=== PATIENT | male | born 1940 | race Caucasian/White ===

== ENCOUNTER → 2017-09-08 10:13 | Outpatient (CLI) | payer MEDICARE, SELFPAY ==
--- NOTE | 2017-09-08 10:19 | MR_ITS ---
MR cervical spine wo/w con, MR 3-d myelogram/MRCP HISTORY: Prior Neck Surgery 2015. Pain since neck surgery. ITS.REASON: CERVICAL DISC DISEASE ORDERING PHYSICIAN: Ellis Dickinson MD PATIENT AGE: 77 years Comparison: CT 01-01-15, MRI 12-17-13 TECHNIQUE: Standard multiplanar multiecho sequences are performed without contrast. 3-D MIP and myelographic images are also rendered and reviewed FINDINGS: There has been extensive cervical spine surgery. Interpedicular screws with posterior stabilizing rods are present C2-T4. This causes extensive artifact. Axial images are noncontributory due to this artifact. Hypertrophic changes are present at the atlantoaxial joint. There is mild anterolisthesis of C3 on C4 4 mm. There is intense increase T2 signal involving the disc at C3-C4 not readily apparent on the previous exam. The disc space however is well preserved. Minimal bulging disc noted at that level. There is fusion of C4 C5 C6 and C7 with no disc space evident at these areas. There is mild posterior ridging at C6-C7 with narrowing of the canal but no obvious cord impingement. There is mild bowing of the posterior aspect of the T2 vertebral body inferiorly and T3-T4 area. IMPRESSION: 1. Extensive postsurgical changes with interpedicular screws and stabilizing rods from C2 to T4 causing extensive artifact. The axial images are nondiagnostic. Please see above for detailed description of the postsurgical changes. 2. Increased T2 signal involves the C3-C4 disc not readily apparent on the previous study. The disc spaces well preserved. Clinical significance of this is uncertain. There is almost 4 mm anterolisthesis of C3. 3. Canal narrowing at C6-C7 with posterior ridging at C6-C7. There is also narrowing the canal at T2 and T3. Consider CT for further evaluation due to the extensive artifact
== END ==
PROVIDERS: Family Provider Internal Medicine Adolescent Medicine; PCP Internal Medicine Adolescent Medicine; Visit Provider Internal Medicine Adolescent Medicine
DX: M50.00 Cervical disc disorder with myelopathy, unspecified cervical region (principal)
CPT/HCPCS: 72156; 76376; A9576

== ENCOUNTER → 2018-05-12 15:18 | Outpatient (CLI) | payer MEDICARE, SELFPAY ==
--- NOTE | 2018-05-12 15:25 | XR_ITS ---
XR shoulder LT min 2V HISTORY: ITS.REASON: ACUTE LT SHOULDER PAIN ORDERING PHYSICIAN: Steven Banks MD PATIENT AGE: 77 years Comparison: 11/21/2009 FINDINGS: There are mild osteoarthritic changes of the left AC joint and glenohumeral joint. No fracture location is evident. Subacromial stenosis noted on the external rotation view. No lytic or blastic change. IMPRESSION: Mild osteoarthritis with subacromial stenosis. No significant change from 11/21/2009
== END ==
PROVIDERS: PCP Internal Medicine Adolescent Medicine; Visit Provider Internal Medicine Adolescent Medicine
DX: M25.512 Pain in left shoulder (principal)
CPT/HCPCS: 73030

== ENCOUNTER → 2021-02-27 12:52 | Outpatient (CLI) | payer MEDICARE, SELFPAY ==
[2021-02-27 13:12] LABS: Basophils # 0.1 K/mm3 (0-0.2); Basophils % 1.1 % (0.1-2.0); Eosinophils # 0.6 K/mm3 (0.0-0.4); Eosinophils % 5.8 % (0.1-12.0); Hematocrit 40.1 % (42.0-52.0); Hemoglobin 13.4 g/dL (14.1-18.0); Lymphocytes # 3.2 K/mm3 (0.7-4.5); Lymphocytes % 33.5 % (10-50); Mean Corpuscular HGB Conc 33.5 g/dL (31.8-35.4); Mean Corpuscular Hemoglobin 35.2 pg (27.0-31.2); Mean Corpuscular Volume 105.1 fl (80-94); Monocytes # 0.6 K/mm3 (0.1-1.0); Monocytes % 6.1 % (1.7-9.3); Neutrophils # 5.2 K/mm3 (1.8-7.8); Neutrophils % 53.4 % (37.0-80.0); Platelet Count 313 K/mm3 (142-424); Red Blood Count 3.82 M/mm3 (4.60-6.20); Red Cell Distribution Width 13.9 % (11.5-17.5); White Blood Count 9.7 K/mm3 (4.8-10.8)
[2021-02-27 13:21] LABS: Hemoglobin A1C 6.6 % (4.0-6.0)
[2021-02-27 14:10] LABS: Alanine Aminotransferase 13 U/L (12-78); Albumin/Globulin Ratio 1.5 (1.1-1.8); Alkaline Phosphatase 50 U/L (38-126); Anion Gap 10.4 mEq/L (5-15); Aspartate Amino Transferase 20 U/L (17-59); Blood Urea Nitrogen 18 mg/dl (9-20); Calcium 9.5 mg/dl (8.4-10.2); Carbon Dioxide 33 mmol/L (22.0-30.0); Chloride 101 mmol/L (98-107); Chol/HDL Ratio 4.3 (1-3.5); Cholesterol 168 mg/dl (140-200); Estimated Glomerular Filt Rate 72 ml/min (>60); GFR (African American) 87 ML/MIN (>60); Globulin 2.6 g/dL (1.3-3.2); Glucose 160 mg/dl (74-100); HDL Cholesterol 39 mg/dl (40-60); Potassium 4.4 mmoL/L (3.5-5.1); Sodium 140 mmol/L (136-145); Total Protein,Serum 6.6 g/dl (6.3-8.2); Triglycerides 340 mg/dl (30-150); VLDL Cholesterol 68 mg/dL (0-40)
[2021-02-27 14:21] LABS: Direct LDL Cholesterol 91.14 mg/dL (100-129)
== END ==
PROVIDERS: Visit Provider Internal Medicine Adolescent Medicine
DX: E11.69 Type 2 diabetes mellitus with other specified complication (principal); I10 Essential (primary) hypertension; Z79.84 Long term (current) use of oral hypoglycemic drugs
CPT/HCPCS: 36415; 80053; 80061; 83036; 85025

== ENCOUNTER → 2022-08-22 16:37 | Outpatient (CLI) | payer MEDICARE, SELFPAY ==
--- NOTE | 2022-08-22 17:24 | XR_ITS ---
PROCEDURE INFORMATION: Exam: XR Cervical Spine Exam date and time: 08/22/2022 5:26 PM Age: 82 years old Clinical indication: Pain; Cervicalgia; Additional info: Cervical neuralgia TECHNIQUE: Imaging protocol: Radiologic exam of the cervical spine. Views: 2 or 3 views. COMPARISON: [facility] MR cervical spine wo/w con 09/08/2017 10:47 AM FINDINGS: Bones/joints: Status post surgery with posterior hardware of the cervical spine with facet screws and vertical stabilization rods extending from C2 to the T4 level with intact appearing hardware. Fusion of the vertebral bodies from C4-C7. Alignment and vertebral body heights preserved. No fracture. Soft tissues: Unremarkable. IMPRESSION: Postop changes. No acute abnormalities.
[2022-08-22 17:32] LABS: Basophils % 0.4 % (0.1-2.0); Eosinophils # 0.3 K/mm3 (0.0-0.4); Eosinophils % 3.2 % (0.1-12.0); Hematocrit 42.9 % (42.0-52.0); Hemoglobin 14.3 g/dL (14.1-18.0); Lymphocytes # 2.6 K/mm3 (0.7-4.5); Lymphocytes % 28.8 % (10-50); Mean Corpuscular HGB Conc 33.4 g/dL (31.8-35.4); Mean Corpuscular Hemoglobin 35.3 pg (27.0-31.2); Mean Corpuscular Volume 105.5 fl (80-94); Mean Platelet Volume 8.6 fl (7.4-10.4); Monocytes # 0.5 K/mm3 (0.1-1.0); Monocytes % 5.5 % (1.7-9.3); Neutrophils # 5.6 K/mm3 (1.8-7.8); Platelet Count 227 K/mm3 (142-424); Red Blood Count 4.07 M/mm3 (4.60-6.20)
[2022-08-22 17:34] LABS: Chloride 99 mmol/L (98-107); Sodium 139 mmol/L (136-145)
[2022-08-22 17:36] LABS: Blood Urea Nitrogen 15 mg/dl (9-20); Estimated Glomerular Filt Rate 93 ml/min (>60); GFR (African American) 112 ML/MIN (>60)
[2022-08-22 17:37] LABS: Alanine Aminotransferase 20 U/L (12-78); Albumin Level 3.7 g/dl (3.5-5.0); Albumin/Globulin Ratio 1.4 (1.1-1.8); Alkaline Phosphatase 54 U/L (38-126); Aspartate Amino Transferase 23 U/L (17-59); Bilirubin,Total 0.9 mg/dl (0.2-1.3); Carbon Dioxide 27 mmol/L (22.0-30.0); Globulin 2.6 g/dL (1.3-3.2); Glucose 134 mg/dl (74-100); Magnesium 1.5 mg/dl (1.6-2.3); Total Protein,Serum 6.3 g/dl (6.3-8.2)
[2022-08-22 17:42] LABS: Hemoglobin A1C 6.5 % (4.0-6.0)
[2022-08-22 18:07] LABS: Thyroid Stimulating Hormone 0.75 uIU/mL (0.465-4.68)
[2022-08-23 09:27] LABS: Vitamin B12 566 pg/mL (239-931)
== END ==
PROVIDERS: PCP Nurse Practitioner Family; Visit Provider Nurse Practitioner Family
DX: M54.12 Radiculopathy, cervical region (principal); N40.1 Benign prostatic hyperplasia with lower urinary tract symptoms; E11.69 Type 2 diabetes mellitus with other specified complication; Z79.84 Long term (current) use of oral hypoglycemic drugs
CPT/HCPCS: 36415; 72040; 80053; 82607; 83036; 83735; 84443; 85025

== ENCOUNTER → 2022-08-23 11:13 | Outpatient (CLI) | payer MEDICARE, SELFPAY ==
[2022-08-23 11:18] LABS: Microscopic, Urine URINE MICROSCOPIC (MICROSCOPIC)
[2022-08-23 12:16] LABS: Appearance,Urine TURBID (Clear); Bilirubin,Urine Negative (Negative); Blood, Urine Negative (Negative); Color,Urine YELLOW (Yellow); Glucose,Urine (UA) TRACE (Negative); Ketones,Urine Negative (Negative); Leukocyte Esterase,Urine TRACE (Negative); Nitrate,Urine Negative (Negative); PH,Urine 7.5 (5.0-8.5); Protein,Urine 1+ (Negative); Urobilinogen,Urine 0.2 EU/dl (0.2)
[2022-08-23 12:56] LABS: Bacteria,Urine 4+ /lpf; Squamous Epithelial Cell,Urine Occasional #/hpf (0-5); Triple Phosphate Crystal,Urine 1+ /lpf
== END ==
PROVIDERS: PCP Nurse Practitioner Family; Visit Provider Nurse Practitioner Family
DX: E11.69 Type 2 diabetes mellitus with other specified complication (principal); N40.1 Benign prostatic hyperplasia with lower urinary tract symptoms; Z79.84 Long term (current) use of oral hypoglycemic drugs
CPT/HCPCS: 81001; 87086; 87088; 87186

== ENCOUNTER → 2022-09-30 15:56 | Outpatient (CLI) | payer MEDICARE, SELFPAY ==
--- NOTE | 2022-09-30 16:01 | XR_ITS ---
FINAL REPORT CLINICAL HISTORY: LT RIB PAIN, FELL OUT OF BED COMPARISON: None FINDINGS: A single view of the chest with 3 views of the ribs were obtained. There is no acute cardiopulmonary process. No pneumothorax is identified. There is irregularity of the left fifth and sixth distal ribs worrisome for nondisplaced fractures IMPRESSION: Findings worrisome for nondisplaced fractures left fifth and sixth distal ribs. Reviewed, Interpreted and Dictated by Rod Mcmanus III, MD Transcribed by Siomara Soliman Authenticated and . [facility]
== END ==
PROVIDERS: PCP Nurse Practitioner Family; Visit Provider Nurse Practitioner Family
DX: R07.89 Other chest pain (principal)
CPT/HCPCS: 71101

== ENCOUNTER 2022-11-05 13:46 | Emergency (ER) | payer MEDICARE, SELFPAY ==
[2022-11-05] VITALS (10 sets, daily range): BP systolic 160–196; BP diastolic 84–100; PULSE 73–83; RESP 13–18; TEMP 36.4; O2SAT 95–98; BMI 23.8
--- NOTE | 2022-11-05 14:02 | CT_ITS ---
FINAL REPORT TECHNIQUE: Thin section axial images were obtained from skull base to vertex without contrast. Coronal reconstruction images were obtained from the axial data. Exam was performed using dose reduction technique. CLINICAL HISTORY: oriented x2.5 FINDINGS: There is age-appropriate atrophy. There is no mass effect or midline shift. There is no intracranial hemorrhage. There is an old lacunar infarct in the left basal ganglia There is no hydrocephalus. Periventricular low density is likely related to changes of chronic small vessel ischemia. The basilar cisterns are preserved. The posterior fossa is without acute abnormality. The soft tissues are without acute abnormality. No acute osseous abnormality is identified. IMPRESSION: No acute intracranial abnormality. Atrophy and changes suggesting chronic small vessel ischemia. Reviewed, Interpreted and Dictated by Monique Ramsey MD Transcribed by Rogelio Hendrix Authenticated and . [facility]
[2022-11-05 14:18] LABS: Basophils % 0.2 % (0.1-2.0); Eosinophils # 0.6 K/mm3 (0.0-0.4); Eosinophils % 4.8 % (0.1-12.0); Hematocrit 36.4 % (42.0-52.0); Hemoglobin 11.9 g/dL (14.1-18.0); Lymphocytes # 2.8 K/mm3 (0.7-4.5); Lymphocytes % 22.6 % (10-50); Mean Corpuscular HGB Conc 32.6 g/dL (31.8-35.4); Mean Corpuscular Hemoglobin 34.4 pg (27.0-31.2); Mean Corpuscular Volume 105.5 fl (80-94); Mean Platelet Volume 8.5 fl (7.4-10.4); Monocytes # 0.6 K/mm3 (0.1-1.0); Monocytes % 5.1 % (1.7-9.3); Neutrophils # 8.2 K/mm3 (1.8-7.8); Neutrophils % 67.3 % (37.0-80.0); Platelet Count 459 K/mm3 (142-424); Red Blood Count 3.45 M/mm3 (4.60-6.20); Red Cell Distribution Width 13.3 % (11.5-17.5); White Blood Count 12.1 K/mm3 (4.8-10.8)
[2022-11-05 14:25] LABS: Microscopic, Urine URINE MICROSCOPIC (MICROSCOPIC)
[2022-11-05 14:26] LABS: Appearance,Urine CLEAR (Clear); Blood, Urine 3+ (Negative); Color,Urine YELLOW (Yellow); Glucose,Urine (UA) Negative (Negative); Ketones,Urine 1+ (Negative); Leukocyte Esterase,Urine Negative (Negative); Nitrate,Urine Negative (Negative); PH,Urine 5.5 (5.0-8.5); Protein,Urine 1+ (Negative); Specific Gravity, Urine >= 1.030 (1.005-1.030); Urobilinogen,Urine 0.2 EU/dl (0.2)
[2022-11-05 14:26] LABS: Alanine Aminotransferase 18 U/L (12-78); Albumin Level 3.4 g/dl (3.5-5.0); Albumin/Globulin Ratio 1.2 (1.1-1.8); Alkaline Phosphatase 81 U/L (38-126); Anion Gap 10.1 mEq/L (5-15); Aspartate Amino Transferase 26 U/L (17-59); Bilirubin,Total 0.9 mg/dl (0.2-1.3); Blood Urea Nitrogen 19 mg/dl (9-20); Calcium 8.9 mg/dl (8.4-10.2); Carbon Dioxide 26 mmol/L (22.0-30.0); Chloride 104 mmol/L (98-107); Creatinine Clearance Estimated 67 mL/min (50-200); Estimated Glomerular Filt Rate 72 ml/min (>60); GFR (African American) 87 ML/MIN (>60); Globulin 2.9 g/dL (1.3-3.2); Glucose 101 mg/dl (74-100); Potassium 4.1 mmoL/L (3.5-5.1); Sodium 136 mmol/L (136-145); Total Protein,Serum 6.3 g/dl (6.3-8.2)
[2022-11-05 14:33] LABS: Bilirubin,Urine 1+ (Negative)
[2022-11-05 14:41] LABS: Benzodiazepines Screen,Urine Positive ng/ml (<200)
[2022-11-05 14:42] LABS: Amphetamine/Metha Screen,Urine Negative ng/ml (<1000); Barbiturates Screen,Urine Negative ng/ml (<200)
[2022-11-05 14:43] LABS: Cannabinoid Screen,Urine Negative ng/ml (<50); Cocaine Screen,Urine Negative ng/ml (<300)
[2022-11-05 14:44] LABS: Methadone Screen,Urine Negative ng/ml (<300)
[2022-11-05 14:45] LABS: Opiate Screen,Urine Negative ng/ml (<300); Phencyclidine Screen,Urine Negative ng/ml (<25)
--- NOTE | 2022-11-05 14:49 | PC.NURSE ---
2nd blood culture sent up
--- NOTE | 2022-11-05 14:58 | ECG_ITS ---
APPROVED REPORT Exam: Resting ECG HR:80 bpm ECG Measurements Heart Rate 80 AXES CO 261 P 4 QRSd 110 QRS -50 QT 412 T 103 QTc 448 Conclusion SINUS RHYTHM WITH FIRST DEGREE AV BLOCK LEFT AXIS DEVIATION [QRS AXIS < -30] LEFT VENTRICULAR HYPERTROPHY AND ST-T CHANGE [VOLTAGE CRITERIA PLUS ST/T ABNORMALITY] ABNORMAL ECG UNCONFIRMED REPORT Electronically signed by : Ellis Dickinson MD 11/06/2022 21:19:45
--- NOTE | 2022-11-05 15:17 | PC.NURSE ---
Rounded on patient; family at BS. Pt was given an oral swab to moisturize his mouth. Call titus within reach
--- NOTE | 2022-11-05 15:22 | PC.NURSE ---
patient given a pillow for comfort; daughter at BS
--- NOTE | 2022-11-05 15:30 | PC.NURSE ---
Daughter and patient updated on plan of care; nothing needed at this time. Call titus within reach
--- NOTE | 2022-11-05 15:38 | PC.NURSE ---
pt was okay with us asking for medical records from ; he asked his daughter to sign consent for medical records. Request has been faxed to medical records at [phone]
--- NOTE | 2022-11-05 16:11 | HMH.EDGENADL ---
Discharge Plan Disposition Patient Disposition: Xfer Short-Term Hosp Prescriptions Prescriptions: No Action nifedipine 30 MG tablet extended release 24hr 30 mg PO DAILY carvedilol 25 MG tablet 25 mg PO DAILY atorvastatin 20 MG tablet 20 mg PO DAILY sennosides-docusate sodium [Stool Softener-Stimulant Laxat] 1 EACH tablet 1 ea PO QODHS aspirin 81 MG tablet,delayed release (DR/EC) 81 mg PO DAILY oxycodone-acetaminophen [Endocet] 1 EACH tablet 1 ea PO NEEDED PRN (Reason: pain) tamsulosin 0.4 MG capsule 0.4 mg PO HS metformin 1,000 MG tablet 1,000 mg PO BID oxybutynin chloride 5 MG tablet 5 mg PO DAILY multivitamin 1 EACH capsule 1 ea PO DAILY alprazolam 0.5 MG tablet extended release 24 hr 0.5 mg PO NEEDED PRN (Reason: nerves) Referrals Follow up/Referrals: Lauren Ulrich APRN [Primary Care Provider] - See instructions Stand Alone Forms Stand Alone Forms: Transfer Record - ED Discharge ED Provider: Reji Shepard General Adult HPI <Micha Tran MD - Last Filed: 11/05/22 18:25> General Chief complaint: Weakness Stated complaint: weakness Time Seen by Provider: 11/05/22 13:50 Mode of Arrival: EMS Source of Information: Patient Limitations: No Limitations Description of Symptoms (Recalled from ER Triage Doc. by RN): Presents to ED with complaints of nausea and fatigue for a few days. Patient has a PICC in right arm EMS states they believe it was for IV antibiotic use but left AMA from . Hx obtained by EMS: They state she is a diabetic and has htn. Reports being on blood thiner but unsure of which one. History of Present Illness HPI narrative: This 82-year-old male with multiple chronic medical conditions including type 2 diabetes, history of prior back surgery, recent admission to where he left AMA 2 days ago presents to the emergency department with generalized fatigue. To me patient denies other symptoms such as fever, chills, chest pain, shortness of breath, nausea, vomiting, or diarrhea. Patient states they put a PICC line in his arm to treat infection, but they never isolated a source of infection. He tells me that 3 different doctors saw him and no one ever found a reason for him to have infection. He was going to be on long-term IV antibiotics, however they have not yet been delivered to his house. Patient states he has back pain but this is at baseline. Related Data Home Medications Medication Instructions Recorded Confirmed alprazolam 0.5 mg tablet,extended 0.5 mg PO NEEDED PRN nerves 09/16/17 09/23/22 release 24 hr aspirin 81 mg tablet,delayed 81 mg PO DAILY heart. 09/16/17 09/23/22 release atorvastatin 20 mg tablet 20 mg PO DAILY cholestrerol 09/16/17 09/23/22 carvedilol 25 mg tablet 25 mg PO DAILY heart. 09/16/17 09/23/22 metformin 1,000 mg tablet 1,000 mg PO BID sugar 09/16/17 09/23/22 multivitamin 1 ea PO DAILY Supplement 09/16/17 09/23/22 nifedipine 30 mg tablet,extended 30 mg PO DAILY heart. 09/16/17 09/23/22 release 24 hr oxybutynin chloride 5 mg tablet 5 mg PO DAILY bladder 09/16/17 09/23/22 oxycodone-acetaminophen 5 mg-325 1 ea PO NEEDED PRN pain 09/16/17 09/23/22 mg tablet (Endocet) sennosides 8.6 mg-docusate sodium 1 ea PO QODHS bowels 09/16/17 09/23/22 50 mg tablet (Stool Softener-Stimulant Laxative) tamsulosin 0.4 mg capsule 0.4 mg PO HS prostate 09/16/17 09/23/22 Allergies Allergy/AdvReac Type Severity Reaction Status Date / Time erythromycin base Allergy Intermediate Hives Verified 09/24/22 08:47 Iodinated Contrast Media Allergy Hives Verified 09/25/22 09:52 [facility] <Micha Tran MD - Last Filed: 11/05/22 18:25> [facility] Disclaimer: The information contained in this section may have been updated after the patient was seen, as this information can be updated by other users. Social History (Updated 09/24/22 @ 09:54 by Trice Bernal APRN) Smoking Status: Never smoker josie
--- NOTE | 2022-11-05 17:00 | PC.NURSE ---
has been paged.
[2022-11-05 17:01] LABS: Troponin I 0.04 ng/ml (0.00-0.034)
[2022-11-05 17:17] LABS: Troponin I 0.04 ng/ml (0.00-0.034)
[2022-11-05 17:19] LABS: Coronavirus 19, PCR Not Detected (NotDetected); Influenza A, PCR Not Detected (NotDetected); Influenza B, PCR Not Detected (NotDetected)
--- NOTE | 2022-11-05 17:22 | PC.NURSE ---
speaking with at , who accepted pt
--- NOTE | 2022-11-05 17:25 | PC.NURSE ---
PT ACCEPTED BY DR WILKERSON AT ED
--- NOTE | 2022-11-05 17:48 | PC.NURSE ---
pt given a new depend after an incontinent episode. Re-adjusted in the bed and a new warm blanket given. Daughter at BS. Call titus within reach and a diabetic food tray ordered for the patient.
--- NOTE | 2022-11-05 17:53 | PC.NURSE ---
Called report to Gary GUSMAN at ER
--- NOTE | 2022-11-05 17:54 | PC.NURSE ---
Called [facility] for transfer to ER.
== END 2022-11-05 18:44 | disposition short-term general hospital (02) ==
PROVIDERS: Emergency Medicine; Emergency Provider Emergency Medicine; PCP Nurse Practitioner Family
DX: R53.1 Weakness (principal); R53.83 Other fatigue; I44.0 Atrioventricular block, first degree; R11.0 Nausea; E11.9 Type 2 diabetes mellitus without complications
CPT/HCPCS: 36415; 70450; 80053; 80305; 81001; 84484; 85025; 87040; 87086; 87636; 93005; 96361; 96374; 99285; J0696